=== PATIENT | female | born 1940 | race Caucasian/White ===

== ENCOUNTER 2020-05-27 04:39 | Emergency (ER) | payer OTHER ==
[~2020-05-27] VITALS: Ht 157.5 cm; Wt 56.7 kg
--- NOTE | 2020-05-27 04:40 | NUR ---
BIB DAUGHTER C/O FEVER X2 DAYS. PT WAS SEEN AT AN URGENT CARE AND WAS TOLD SHE MIGHT HAVE UTI BUT WAS NOT GIVEN ATB RX PER DAUGHTER REPORT. PT AAOX3 NO ACUTE DISTRESS NOTED, RESP EVEN AND UNLABORED. PENDING ER MD ARNOLD.
[2020-05-27] MEDS ORDERED: IV NS 0.9% 500 ML IV ONE (05:30)
--- NOTE | 2020-05-27 05:30 | NUR ---
STARTED SL 20G TO RFA, BLOOD DRAWN AND SENT TO LAB.
--- NOTE | 2020-05-27 05:38 | NUR ---
PT MEDICATED ORDERED.
[2020-05-27 05:45] LABS: BILIRUBIN,URINE NEGATIVE (NEGATIVE); COLOR,URINE YELLOW (YELLOW); LEUKOCYTE ESTERASE ,URINE NEGATIVE (NEGATIVE); NITRITE, URINE NEGATIVE (NEGATIVE); PH,URINE 7.5 (5.0-8.0); PROTEIN,URINE NEGATIVE (NEGATIVE); UGLUCOSE NEGATIVE (NEGATIVE); UROBILINOGEN,URINE 0.2 EU/dL (0.2)
[2020-05-27 05:57] LABS: BASOPHILS % (AUTO) 0.2 % (0.0-2.0); EOSINOPHILS % (AUTO) 0.2 % (0.0-6.0); HEMATOCRIT 26 % (33-45); LYMPHOCYTES % (AUTO) 34.3 % (20.0-44.0); MEAN CORPUSCULAR HGB CONC 34 g/dl (31.0-36.0); MEAN CORPUSCULAR VOLUME 126 fL (82-100); MONOCYTES # (AUTO) 0.1 /CMM (0.1-1.30); MONOCYTES % (AUTO) 2.2 % (2.0-12.0); NEUTROPHILS # (AUTO) 1.8 /CMM (1.8-8.9); NEUTROPHILS % (AUTO) 63.1 % (43.0-81.0); WHITE BLOOD COUNT (AUTO) 2.8 K/uL (4.3-11.0)
[2020-05-27 06:22] LABS: PLATELET COUNT (AUTO) 47 /CMM (150-450)
[2020-05-27 07:17] LABS: ALBUMIN 3.8 g/dL (3.4-5.0); BILIRUBIN,DIRECT 0.3 mg/dL (0.0-0.2); CALCIUM, SERUM 8.5 mg/dL (8.5-10.1); POTASSIUM 3.8 mmol/L (3.5-5.1); TOTAL PROTEIN, SERUM 7.7 g/dL (6.4-8.2)
[2020-05-27 07:44] LABS: RBC,URINE 0-2 /HPF (0-2)
[2020-05-27 07:45] LABS: BACTERIA,URINE None seen /HPF (None Seen); SQUAMOUS EPITHELIAL CELL,UR Few /HPF (None Seen); WBC,URINE NONE SEEN /HPF (0-3)
[2020-05-27 07:55] VITALS: BP 116/65
--- NOTE | 2020-05-27 07:59 | NUR ---
boom leonardo (son-in-law) . 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
--- NOTE | 2020-05-27 08:03 | NUR ---
IV removed. Catheter intact and site benign. Pressure and 4x4 applied to site. No bleeding noted.Patient discharged to home in stable condition. Written and verbal after care instructions given. Patient verbalizes understanding of instruction.
[2020-05-27 10:58] LABS: LYMPHOCYTES % (MANUAL) 30 % (16-48); MONOCYTES % (MANUAL) 3 % (0-11.0); NEUTROPHILS % (MANUAL) 67 (42-76)
== END 2020-05-27 08:06 | disposition home or self-care (01) ==
LOC: ER 04:46
DX: U07.1 COVID-19 (principal); R19.7 Diarrhea, unspecified; D61.818 Other pancytopenia
CPT/HCPCS: 36415; 71045; 80048; 80076; 81001; 84484; 85007; 85025; 99284; J7040; C9803; U0003